=== PATIENT | female | born 1995 | race Caucasian/White ===

== ENCOUNTER 2018-01-18 23:01 | Emergency (ER) | payer OTHER ==
[~2018-01-18] VITALS: Ht 160 cm; Wt 66.8 kg
[~2018-01-18 23:01] MED LIST: IBUP-2070 PO; PENICILLIN VK PO
[2018-01-19 00:43] VITALS: BP 128/72
[2018-01-19] MEDS ORDERED: DEXAMETHASONE SOD PHOS 4 MG/ML 5 ML VIAL PO ONE (00:45)
[2018-01-19] MEDS ORDERED: PENICILLIN G BENZATHINE LA 1,200,000 UNITS/2 ML SYRINGE IM ONE (00:45)
== END 2018-01-19 00:45 | disposition home or self-care (01) ==
LOC: EMS 23:02
DX: J02.0 Streptococcal pharyngitis (principal)
CPT/HCPCS: 81025 ×2; 87430; 96372; 99283; J0561; J1100

== ENCOUNTER 2019-06-18 11:38 | Emergency (ER) | payer OTHER ==
[~2019-06-18] VITALS: Ht 160 cm; Wt 65.5 kg
[~2019-06-18 11:38] MED LIST changes: -PENICILLIN VK PO
[2019-06-18 14:18] VITALS: BP 107/69
== END 2019-06-18 14:26 | disposition home or self-care (01) ==
LOC: EMS 11:41
DX: J06.9 Acute upper respiratory infection, unspecified (principal)
CPT/HCPCS: 87430